=== PATIENT | male | born 1985 | race Caucasian/White ===

== ENCOUNTER 2018-06-08 20:38 | Observation (INO) | payer BC ==
[2018-06-08] MEDS ORDERED: NITROGLYCERIN OINT 1 INCH/GM PACKET TOPICAL STA (21:32)
[2018-06-08] MEDS ORDERED: ASPIRIN 81 MG PO STA (21:32)
[2018-06-08 21:45] LABS: Basophils % (A) 0 %; Eosinophils % (A) 0 %; HCT 49.9 % (39.0-53.0); HGB 16.7 gm/dL (13.0-17.5); Lymphocytes # (A) 1.3 k/uL (1.0-4.8); Lymphocytes % (A) 21 %; MCH 29.6 pg (25.0-35.0); MCHC 33.5 g/dL (31.0-37.0); MCV 88.3 fL (80.0-100.0); Mean Platelet Volume 8.2; Monocytes # (A) 0.5 k/uL (0-1.0); Monocytes % (A) 7 %; Neutrophils # (A) 4.5 k/uL (1.3-7.7); Neutrophils % (A) 70 %; Platelet Count 243 k/uL (150-450); RBC 5.65 m/uL (4.30-5.90); RDW 12.9 % (11.5-15.5); WBC 6.4 k/uL (3.8-10.6)
--- NOTE | 2018-06-08 21:58 | XR ---
EXAMINATION: XR chest 2V DATE AND TIME: 06/08/2018 9:44 PM CLINICAL INDICATION: Chest Pain TECHNIQUE: PA and lateral COMPARISON: None. FINDINGS: The lungs are clear. The pleural spaces are negative. The cardiac silhouette is not enlarged. The remainder of the mediastinal silhouette is unremarkable. The skeletal structures and soft tissues are negative for acute findings. IMPRESSION: NO ACUTE PROCESS.
[2018-06-08 22:00] LABS: ALT 36 U/L (21-72); AST 24 U/L (17-59); Albumin 4.9 g/dL (3.5-5.0); Alkaline Phosphatase 59 U/L (38-126); Anion Gap 12 mmol/L; Blood Urea Nitrogen 19 mg/dL (9-20); Calcium 10.4 mg/dL (8.4-10.2); Carbon Dioxide 26 mmol/L (22-30); Chloride 104 mmol/L (98-107); Glucose 101 mg/dL (74-99); Potassium 3.7 mmol/L (3.5-5.1); Sodium 142 mmol/L (137-145); Total Bilirubin 0.7 mg/dL (0.2-1.3); Total Protein 7.9 g/dL (6.3-8.2)
[2018-06-08 22:04] LABS: INR 1.1 (<1.2); Partial Thromboplastin Time 25.6 sec (22.0-30.0); Prothrombin Time 10.9 sec (9.0-12.0)
[2018-06-08 22:06] LABS: Creatine Kinase 155 U/L (55-170)
[2018-06-08 22:17] LABS: Creatine Kinase MB 0.9 ng/mL (0.0-2.4); Troponin I <0.012 ng/mL (0.000-0.034)
--- NOTE | 2018-06-08 23:25 | ED ---
Chest Pain HPI - General Chief Complaint: Arrhythmia/Palpitations Stated Complaint: racing heart Time Seen by Provider: 06/08/18 21:28 Source: patient Mode of arrival: ambulatory Limitations: no limitations - History of Present Illness Initial Comments: This 33-year-old white male presents with a complaint of some midsternal chest pain which is described as a pressure. It has been associated with some palpitations as well. This occurred shortly prior to arrival. He denies any radiation of pain or shortness of breath. He denies any previous similar incidents. He's never had any known cardiac abnormalities. There is no abdominal pain. He's never had any previous cardiac testing. No other complaints or modifying factors. - Related Data Home Medications Medication Instructions Recorded Confirmed Atorvastatin [Lipitor] 20 mg PO DAILY 06/08/18 06/08/18 Allergies Allergy/AdvReac Type Severity Reaction Status Date / Time No Known Allergies Allergy Verified 06/08/18 21:17 Review of Systems ROS Statement: Those systems with pertinent positive or pertinent negative responses have been documented in the HPI. ROS Other: All systems not noted in ROS Statement are negative. Past Medical History Past Medical History: Hyperlipidemia History of Any Multi-Drug Resistant Organisms: None Reported Past Surgical History: No Surgical Hx Reported Past Psychological History: No Psychological Hx Reported Smoking Status: Never smoker Past Alcohol Use History: None Reported Past Drug Use History: None Reported General Exam - General Exam Comments Initial Comments: GENERAL: The patient is well nourished and well hydrated. VITAL SIGNS: Heart rate, blood pressure, respiratory rate reviewed as recorded in nurse's notes. EYES: Pupils are round and reactive. Extraocular movements are intact. No conjunctival / lid redness or swelling. ENT: No external evidence of injury, swelling, or ecchymosis. Airway is patent. Throat is clear. NECK: Nontender. No swelling or evidence of injury. No subcutaneous emphysema. Trachea is midline. No thyroid mass. HEART: Regular rate and rhythm. Good peripheral pulses. LUNGS/CHEST: Breath sounds clear and equal bilaterally. No rales, rhonchi, or wheezes. No ecchymosis, subcutaneous emphysema, or tenderness. ABDOMEN: Abdomen soft without tenderness. No palpable masses or organomegaly. No peritoneal signs. No abdominal wall swelling or ecchymosis. EXTREMITIES: No extremity tenderness. Normal muscle tone and function. No thoracolumbar tenderness. NEUROLOGIC: Sensation is grossly intact. Cranial nerve exam reveals face is symmetrical, tongue is midline, speech is clear. SKIN: No abrasions or ecchymosis is noted. No induration or masses noted. PSYCHIATRIC: Alert and oriented. Appropriate behavior and judgment. Limitations: no limitations Course Vital Signs 06/08/18 20:49 Temperature 98.1 F Pulse Rate 77 Respiratory 18 Rate Blood Pressure 140/81 O2 Sat by Pulse 100 Oximetry Chest Pain MDM - MDM The patient was seen and examined. All diagnostics were reviewed. The EKG shows a normal sinus rhythm at a rate of [address]-T wave changes noted. The NM interval is 164, QRS duration is 100, and the QTC intervals 419. He receives some aspirin as well as some Nitropaste. The laboratory does not show any acute abnormalities. The chest x-ray is negative. Is felt as though possibly acute coronary syndrome is plausible and it is beneficial to admit him to the hospital for short stay admission. He is agreeable. Case will be discussed with internal medicine shortly and he will be admitted for further monitoring and workup. Disposition Clinical Impression: Chest pain, Unstable angina, Palpitations Disposition: ADMITTED IP TO THIS HOSP Condition: Fair Is patient prescribed a controlled substance at d/c from ED?: No Time of Disposition: 23:25
[2018-06-08] MEDS ORDERED: METOPROLOL TARTRATE 25 MG TAB PO SCH (23:45)
[2018-06-08] MEDS ORDERED: ACETAMINOPHEN TAB 325 MG TAB PO PRN (23:45)
[2018-06-08] MEDS ORDERED: NITROGLYCERIN SL TABS 0.4 MG TAB SUBLINGUAL PRN (23:45)
[2018-06-09 00:05] LABS: Cholesterol 199 mg/dL (<200); HDL Cholesterol 57 mg/dL (40-60); LDL Cholesterol,Calculated 118 mg/dL (0-99); Triglycerides 119 mg/dL (<150)
[2018-06-09] MEDS: NITROGLYCERIN OINT 1 INCH/GM PACKET TOPICAL SCH ×2 (00:24→06:03)
[2018-06-09 00:39] VITALS: BMI 31.4
[2018-06-09 03:32] LABS: Creatine Kinase 128 U/L (55-170)
[2018-06-09 03:46] LABS: Creatine Kinase MB 0.6 ng/mL (0.0-2.4); Troponin I <0.012 ng/mL (0.000-0.034)
[2018-06-09 07:20] VITALS: TEMP 98.4
[2018-06-09] MEDS ORDERED: ATORVASTATIN 20 MG TAB PO SCH (09:00)
[2018-06-09] MEDS ORDERED: ENOXAPARIN 40 MG/0.4 ML SYRINGE SQ SCH (09:00)
[2018-06-09] MEDS ORDERED: ASPIRIN 325 MG TAB PO SCH (09:00)
--- NOTE | 2018-06-09 09:51 | P.CRDCN ---
<Corey Ny - Last Filed: 06/09/18 09:49> History of Present Illness History of present illness: Patient came in complaining of a pounding sensation in the chest at rest but after heavy exertion while at work This is the first episode of pounding in the chest. He was not dehydrated he was drinking adequately later on he started experience chest discomfort Normal cardiac enzymes Normal twelve-lead ECG History of dyslipidemia recently started on atorvastatin Nonsmoker no alcohol consumption no diabetes nor hypertension Suggest Exercise stress echo to maximal capacity 2-D echo has been ordered In the future event monitoring may be considered Patient was instructed to go to the emergency room or urgent care as quickly as possible if he had the palpitations and pounding again Past Medical History Past Medical History: Hyperlipidemia History of Any Multi-Drug Resistant Organisms: None Reported Past Surgical History: No Surgical Hx Reported Past Psychological History: No Psychological Hx Reported Smoking Status: Never smoker Past Alcohol Use History: None Reported Past Drug Use History: None Reported Medications and Allergies Home Medications Medication Instructions Recorded Confirmed Type Atorvastatin [Lipitor] 20 mg PO DAILY 06/08/18 06/08/18 History Allergies Allergy/AdvReac Type Severity Reaction Status Date / Time No Known Allergies Allergy Verified 06/08/18 21:17 Physical Exam Vitals: Vital Signs Temp Pulse Pulse Resp BP BP Pulse Ox 06/09/18 07:19 98.4 F 66 101/61 98 06/09/18 04:42 97.9 F 53 L 15 102/67 96 06/09/18 04:00 61 18 06/09/18 00:59 98.2 F 61 18 112/57 98 06/09/18 00:30 61 18 06/09/18 00:20 58 L 0 L 111/44 95 06/09/18 00:10 69 18 111/44 96 06/09/18 00:00 59 L 8 L 124/60 96 06/08/18 23:53 60 16 120/70 100 06/08/18 23:50 60 0 L 124/60 96 06/08/18 23:40 62 0 L 124/60 97 06/08/18 23:30 61 4 L 116/59 96 06/08/18 23:20 91 15 116/59 94 L 06/08/18 23:10 59 L 0 L 116/59 97 06/08/18 23:00 61 7 L 116/77 96 06/08/18 22:50 57 L 7 L 116/77 96 06/08/18 22:40 61 6 L 116/77 99 06/08/18 22:30 60 7 L 126/65 97 06/08/18 22:20 66 8 L 126/65 97 06/08/18 22:10 62 18 126/65 97 06/08/18 22:00 68 28 H 132/76 98 06/08/18 21:50 64 5 L 132/76 97 06/08/18 21:40 132/76 06/08/18 21:30 71 15 125/59 98 06/08/18 21:20 70 14 125/59 96 06/08/18 21:10 74 15 125/59 99 06/08/18 21:00 78 18 06/08/18 20:59 66 17 06/08/18 20:49 98.1 F 77 18 140/81 100 Intake and Output 06/08/18 06/09/18 06/09/18 22:59 06:59 14:59 Intake Total 10 Balance 10 Intake: IV 10 0.9 10 Other: Voiding Method Toilet # Voids 1 Weight 102.058 kg 102.058 kg Results 06/08/18 21:05 06/08/18 21:05 Cardiac Enzymes 06/08/18 06/08/18 06/09/18 Range/Units 21:05 21:05 03:00 AST 24 (17-59) U/L CK-MB (CK-2) 0.9 0.6 (0.0-2.4) ng/mL Troponin I <0.012 <0.012 (0.000-0.034) ng/mL Coagulation 06/08/18 Range/Units 21:05 PT 10.9 (9.0-12.0) sec APTT 25.6 (22.0-30.0) sec Lipids 06/08/18 Range/Units 21:05 Triglycerides 119 (<150) mg/dL Cholesterol 199 (<200) mg/dL HDL Cholesterol 57 (40-60) mg/dL CBC 06/08/18 Range/Units 21:05 WBC 6.4 (3.8-10.6) k/uL RBC 5.65 (4.30-5.90) m/uL Hgb 16.7 (13.0-17.5) gm/dL Hct 49.9 (39.0-53.0) % Plt Count 243 (150-450) k/uL Comprehensive Metabolic Panel 06/08/18 Range/Units 21:05 Sodium 142 (137-145) mmol/L Potassium 3.7 (3.5-5.1) mmol/L Chloride 104 (98-107) mmol/L Carbon Dioxide 26 (22-30) mmol/L BUN 19 (9-20) mg/dL Creatinine 1.06 (0.66-1.25) mg/dL Glucose 101 H (74-99) mg/dL Calcium 10.4 H (8.4-10.2) mg/dL AST 24 (17-59) U/L ALT 36 (21-72) U/L Alkaline Phosphatase 59 (38-126) U/L Total Protein 7.9 (6.3-8.2) g/dL Albumin 4.9 (3.5-5.0) g/dL Current Medications Generic Name Dose Route Start Last Admin Trade Name Freq PRN Reason Stop Dose Admin Acetaminophen 650 mg 06/08/18 23:45 Tylenol Tab PO Q4HR PRN Pain Atorvastatin Calcium 20 mg 06/09/18 09:00 Lipitor PO DAILY [facility] Enoxaparin Sodium 40 mg 06/09/18 09:00 Lovenox SQ DAILY [facility] Nitroglycerin 0.4 mg 06/08/18 23:45 Nitrostat SUBLINGUAL Q5M PRN Chest Pain Intake and Output 06/08/18 06/09/18 06/09/18 22:59 06:59 14:59 Intake Total 10 Balance 10 Intake: IV 10 0.9 10 Other: Voiding Method Toilet # Voids 1 Weight 102.058 kg 102.058 kg 06/08/18 21:05 06/08/18 21:05 <Dia Cook - Last Filed: 06/09/18 10:26> History of Present Illness History of present illness: Mr. Randle is a pleasant 33-year-old male past medical history significant for dyslipidemia. He denies coronary artery disease, hypertension or diabetes mellitus. We have been asked to see him in consultation for chest pain. He states yesterday after he finished working he was sitting down resting and he started feeling his heart racing. The heart racing was persistent for his ride home from [place] to [place]. When he presented to ED he was still feeling this pounding in his chest. He states it felt regular and fast. He also felt a discomfort in his chest associated with the pounding. He denies dizziness , nausea, vomiting, diaphoresis or shortness of breath. Ultimately the palpitations subsided on their own with no specific alleviating factors. He has not had an further symptoms since admission. EKG on admission reveals sinus mechanism with no acute ST or T wave abnormalities noted. Telemetry tracings have been unremarkable. Chest x-ray negative for an acute cardiopulmonary process. Laboratory data reviewed, hemoglobin 16.7, platelets 243, sodium 142, potassium 3.7, magnesium 2.0, creatinine 1.06, cardiac enzymes negative 2, LDL 18 HDL 57. Current cardiac medications include atorvastatin 20 mg daily. At the time of my exam: CONSTITUTIONAL: Denies fever. Denies chills. EYES: Denies blurred vision. Denies vision changes. Denies eye pain. EARS, NOSE, MOUTH & THROAT: Denies headache. Denies sore throat. Denies ear pain. CARDIOVASCULAR: Denies chest pain. Denies shortness of breath. Denies orthopnea. Denies PND. Denies palpitations. RESPIRATORY: Denies cough. GASTROINTESTINAL: Denies abdominal pain. Denies diarrhea. Denies constipation. Denies nausea. Denies vomiting. MUSCULOSKELETAL: Denies myalgias. INTEGUMENTARY: Denies pruitis. Denies rash. NEUROLOGIC: Denies numbness. Denies tingling. Denies weakness. PSYCHIATRIC: Denies anxiety. Denies depression. ENDOCRINE: Denies fatigue. Denies weight change. Denies polydipsia. Denies polyurina. GENITOURINARY: Denies burning, hematuria or urgency with micturation. HEMATOLOGIC: Denies history of anemia. Denies bleeding. Blood pressure 101/61 heart rate 66 afebrile maintaining oxygen saturation on room GENERAL: This is a 33-year-old male in no apparent distress at the time of my examination. HEENT: Head is atraumatic, normocephalic. Pupils are equal, round. Sclerae anicteric. Conjunctivae are clear. Mucous membranes of the mouth are moist. Neck is supple. There is no jugular venous distention. No carotid bruit is heard. LUNGS: Clear to auscultation no wheezes, rales or rhonchi. No chest wall tenderness is noted on palpation or with deep breathing. HEART: Regular rate and rhythm without murmurs, rubs or gallops. S1 and S2 heard. ABDOMEN: Soft, nontender. Bowel sounds are heard. No organomegaly noted. EXTREMITIES: No evidence of peripheral edema and no calf tenderness noted. VASCULAR: Radial and dorsalis pedis pulses palpated, no evidence of clubbing. NEUROLOGIC: Patient is awake, alert and oriented x3. ASSESSMENT Palpitations Dyslipidemia, recently started on atorvastatin for PCP PLAN 2-D echocardiogram and Doppler study has been obtained and will be reviewed. Perform exercise stress echocardiogram to maximum capacity. Follow up with Dr. Ny in the office for outpatient event monitoring. Thank you kindly for this consultation. Nurse Practitioner note has been reviewed, I agree with a documented findings and plan of care. Patient was seen and examined. Physical Exam Vitals: Vital Signs Temp Pulse Pulse Resp BP BP Pulse Ox 06/09/18 07:19 98.4 F 66 101/61 98 06/09/18 04:42 97.9 F 53 L 15 102/67 96 06/09/18 04:00 61 18 06/09/18 00:59 98.2 F 61 18 112/57 98 06/09/18 00:30 61 18 06/09/18 00:20 58 L 0 L 111/44 95 06/09/18 00:10 69 18 111/44 96 06/09/18 00:00 59 L 8 L 124/60 96 06/08/18 23:53 60 16 120/70 100 06/08/18 23:50 60 0 L 124/60 96 06/08/18 23:40 62 0 L 124/60 97 06/08/18 23:30 61 4 L 116/59 96 06/08/18 23:20 91 15 116/59 94 L 06/08/18 23:10 59 L 0 L 116/59 97 06/08/18 23:00 61 7 L 116/77 96 06/08/18 22:50 57 L 7 L 116/77 96 06/08/18 22:40 61 6 L 116/77 99 06/08/18 22:30 60 7 L 126/65 97 06/08/18 22:20 66 8 L 126/65 97 06/08/18 22:10 62 18 126/65 97 06/08/18 22:00 68 28 H 132/76 98 06/08/18 21:50 64 5 L 132/76 97 06/08/18 21:40 132/76 06/08/18 21:30 71 15 125/59 98 06/08/18 21:20 70 14 125/59 96 06/08/18 21:10 74 15 125/59 99 06/08/18 21:00 78 18 06/08/18 20:59 66 17 06/08/18 20:49 98.1 F 77 18 140/81 100 Intake and Output 06/08/18 06/09/18 06/09/18 22:59 06:59 14:59 Intake Total 10 Balance 10 Intake: IV 10 0.9 10 Other: Voiding Method Toilet # Voids 1 Weight 102.058 kg 102.058 kg Results 06/08/18 21:05 06/08/18 21:05 Cardiac Enzymes 06/08/18 06/08/18 06/09/18 Range/Units 21:05 21:05 03:00 AST 24 (17-59) U/L CK-MB (CK-2) 0.9 0.6 (0.0-2.4) ng/mL Troponin I <0.012 <0.012 (0.000-0.034) ng/mL Coagulation 06/08/18 Range/Units 21:05 PT 10.9 (9.0-12.0) sec APTT 25.6 (22.0-30.0) sec Lipids 06/08/18 Range/Units 21:05 Triglycerides 119 (<150) mg/dL Cholesterol 199 (<200) mg/dL HDL Cholesterol 57 (40-60) mg/dL CBC 06/08/18 Range/Units 21:05 WBC 6.4 (3.8-10.6) k/uL RBC 5.65 (4.30-5.90) m/uL Hgb 16.7 (13.0-17.5) gm/dL Hct 49.9 (39.0-53.0) % Plt Count 243 (150-450) k/uL Comprehensive Metabolic Panel 06/08/18 Range/Units 21:05 Sodium 142 (137-145) mmol/L Potassium 3.7 (3.5-5.1) mmol/L Chloride 104 (98-107) mmol/L Carbon Dioxide 26 (22-30) mmol/L BUN 19 (9-20) mg/dL Creatinine 1.06 (0.66-1.25) mg/dL Glucose 101 H (74-99) mg/dL Calcium 10.4 H (8.4-10.2) mg/dL AST 24 (17-59) U/L ALT 36 (21-72) U/L Alkaline Phosphatase 59 (38-126) U/L Total Protein 7.9 (6.3-8.2) g/dL Albumin 4.9 (3.5-5.0) g/dL Current Medications Generic Name Dose Route Start Last Admin Trade Name Freq PRN Reason Stop Dose Admin Acetaminophen 650 mg 06/08/18 23:45 Tylenol Tab PO Q4HR PRN Pain Atorvastatin Calcium 20 mg 06/09/18 09:00 Lipitor PO DAILY [facility] Enoxaparin Sodium 40 mg 06/09/18 09:00 Lovenox SQ DAILY [facility] Nitroglycerin 0.4 mg 06/08/18 23:45 Nitrostat SUBLINGUAL Q5M PRN Chest Pain Intake and Output 06/08/18 06/09/18 06/09/18 22:59 06:59 14:59 Intake Total 10 Balance 10 Intake: IV 10 0.9 10 Other: Voiding Method Toilet # Voids 1 Weight 102.058 kg 102.058 kg 06/08/18 21:05 06/08/18 21:05
[2018-06-09 11:59] VITALS: BP 113/50; PULSE 72; RESP 16
--- NOTE | 2018-06-09 12:51 | ECHOF ---
Referral Reason: MEASUREMENTS -------- HEIGHT: 162.6 cm WEIGHT: 102.1 kg BP: 102/67 RVIDd: 3.2 cm (< 3.3) IVSd: 1.1 cm (0.6 - 1.1) LVIDd: 4.1 cm (3.9 - 5.3) LVPWd: 1.5 cm (0.6 - 1.1) IVSs: 1.3 cm LVIDs: 2.6 cm LVPWs: 1.7 cm LA Diam: 2.8 cm (2.7 - 3.8) Ao Diam: 3.2 cm (2.0 - 3.7) AV Cusp: 2.1 cm (1.5 - 2.6) LA Diam: 3.2 cm (2.7 - 3.8) MV EXCURSION: 19.089 mm (> 18.000) MV EF SLOPE: 99 mm/s (70 - 150) EPSS: 0.6 cm MV E Joni: 0.64 m/s MV DecT: 210 ms MV A Joni: 0.46 m/s MV E/A Ratio: 1.38 RAP: 5.00 mmHg RVSP: 12.23 mmHg FINDINGS -------- Sinus rhythm. This was a technically good study. LV size, wall thickness and systolic function are normal, with an EF greater than 55%. The left ashley tricular size is normal. The left atrial size is normal. The right atrial size is normal. The aortic valve is trileaflet, and appears structurally normal. No aortic stenosis or regurgitation. Mild mitral regurgitation is present. Mild tricuspid regurgitation present. There is no evidence of pulmonary hypertension. The right v entricular systolic pressure, as measured by Doppler, is 12.23mmHg. There is no pulmonic regurgitation present. The aortic root size is normal. There is no pericardial effusion. CONCLUSIONS -------- 1. LV size, wall thickness and systolic function are normal, with an EF greater than 55%. 2. The left ventricular size is normal. 3. The left atrial size is normal. 4. The right atrial size is normal. 5. The aortic valve is trileaflet, and appears structurally normal. No aortic stenosis or regurgitati on. 6. Mild mitral regurgitation is present. 7. Mild tricuspid regurgitation present. 8. There is no evidence of pulmonary hypertension. 9. The right ventricular systolic pressure, as measured by Doppler, is 12.23mmHg. 10. There is no pulmonic regurgitation present. 11. The aortic root size is normal. 12. There is no pericardial effusion. [employer]LE [employer]ATH[employer] CUTTING MACHINE OPERATOR: Davida Batista RDCS
--- NOTE | 2018-06-09 15:35 | HP ---
HISTORY AND PHYSICAL DATE OF ADMISSION: 06/08/2018 DATE OF SERVICE: 06/09/2018 PRESENTING COMPLAINT: Heart racing. HISTORY OF PRESENTING COMPLAINT: This is a 33-year-old patient of Dr. Padgett in rather good health. 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 Around 7:00 pm any p.m. yesterday was sitting down and his heart started racing, lasted for about an hours. There was no dizziness. No lightheadedness. No shortness of breath. No perspiration. Did not radiate to the neck or arm. The patient did feel a little bit pressure afterwards. Decided to come in. Does not smoke or drink alcohol. Denies use of any recreational drugs. Drinks about 120 oz coffee in the morning. It is occasional Gatorade rather pretty active. No family history of cardiac disease patient EKG was normal sinus rhythm, otherwise asymptomatic and healthy. REVIEW OF SYSTEMS: CONSTITUTIONAL: None. HEENT: None. CARDIOVASCULAR: None. GASTROINTESTINAL none denied. MUSCULOSKELETAL: None dermatologic hematologic lymphatic none. PSYCHIATRY: None. NEUROLOGICAL: None. PAST MEDICAL HISTORY: Hyperlipidemia. PAST SURGICAL HISTORY: None. SOCIAL HISTORY: No smoking, no alcohol. 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 . FAMILY HISTORY: Not completely noncontributory to presentation. HOME MEDICATIONS: Lipitor 20 mg a day. ALLERGIES: None. PHYSICAL EXAMINATION: Vital signs on presentation temperature 98.1, pulse 97, respiratory 18, blood pressure 140/81, pulse 100% on room air. GENERAL APPEARANCE: Average build, BMI 31.8, sitting up, comfortable. EYES: Pupils equal, conjunctivae normal. HEENT: External appearance of nose and ears normal. Oral cavity normal. NECK: JVD not raised, mass not palpable. RESPIRATORY: Effort normal. Lungs are clear. CARDIOVASCULAR: First and second sounds normal. No edema. ABDOMEN: Soft, nontender. Liver and spleen not palpable. LYMPHATIC: No lymph node palpable in neck or axillae. PSYCHIATRY: Alert and oriented x3. Mood and affect normal. NEUROLOGICAL: Pupils equal. Cranial nerves grossly intact. Power and sensation grossly intact. INVESTIGATIONS: White count 6.4, hemoglobin 16.7, potassium 3.7, troponin times 2 negative. LDL 118. EKG tracing personally reviewed by me shows normal sinus rhythm . Chest x-ray film, personally reviewed by me shows clear lung bell. A 2D echocardiogram done earlier this morning shows preserved LV function. ASSESSMENT: 1. Evidence of heart racing for one hour, probably evidence of possibly supraventricular tachycardia/arrhythmia, self-limiting. No other associated symptoms. Patient does not have any cardiac risk factors. Does not have any excessive caffeine intake. Seen by Cardiology who ordered the stress test stress test. 2. Obesity, body mass index of 31.4. 3. Hyperlipidemia. PLAN: Care was discussed with the patient by the bedside the patient. The patient did have a stress test this morning. Awaiting the results. Cardiology has also ordered a D-dimer and TSH. Will await the results of the same. Patient's symptoms are not entirely compatible with PE. MMODL / IJN: [id number] /
--- NOTE | 2018-06-10 07:09 | DS ---
DISCHARGE SUMMARY DATE OF ADMISSION: 06/08/2018 DATE OF DISCHARGE: 06/09/2018 FINAL DIAGNOSES: 1. Arrhythmia, likely supraventricular tachycardia, self-limiting. 2. Obesity body mass index 31.4. 3. Hyperlipidemia. HOSPITAL COURSE: This patient is rather healthy, presented with evidence of racing heart, lasted about an hour. A 2-D echocardiogram was unremarkable. Stress test was reported to be negative per Cardiology. D-dimer was negative. TSH was normal. On examination, afebrile, blood pressure 113/50. Lungs are clear. CARDIOVASCULAR: First and second sounds normal. CONSULTATION: Dr. Corey yN from Cardiology. Care was discussed with the patient and . DISCHARGE MEDICATION: Lipitor 20 mg a day. Follow up with Dr. Ny in 6 weeks. Follow up with Dr. Padgett in 2 weeks. MMODL / IJN: [id number] /
--- NOTE | 2018-06-10 20:27 | ECHOS ---
STRESS ECHOCARDIOGRAM BASELINE HEART RATE: 73 BASELINE BLOOD PRESSURE: 104/44 MAXIMUM HEART RATE: 160 MAXIMUM BLOOD PRESSURE: 188/56 85% MPHR: 152 100% MPHR: 185 METS: 13.5 MAXIMUM STAGE REACHED: 5 TOTAL EXERCISE TIME: 13:00 CLINICAL INFORMATION: This is a 33-year-old male patient who presented with chest discomfort. He underwent an exercise stress echo. Baseline heart rate 73 beats per minute. Baseline blood pressure 104/44 mmHg. Baseline 12-lead ECG shows normal sinus rhythm with occasional PVCs, nonspecific ST-T abnormalities. Patient exercised on a Danny protocol for 13 minutes achieving a peak heart rate of 160 beats per minute. There was no ECG evidence for ischemia. Occasional PVCs are noted. No sustained or nonsustained arrhythmias noted. There was no ECG evidence for ischemia. The baseline 2D echo images showed normal LV size and systolic function without segmental wall motion abnormalities. At peak exercise, there was excellent augmentation of overall LV contractility without developing any wall motion abnormalities. At recovery, regional global LV systolic function remained normal. IMPRESSION: No ECG or echocardiographic evidence for ischemia. MMODL / IJN: [id number] /
== END 2018-06-09 16:45 | disposition home or self-care (01) ==
LOC: EC 20:38 → 1SOBS 23:25
PROVIDERS: ADMIT Hospitalist; ATTEND Hospitalist
DX: I49.9 Cardiac arrhythmia, unspecified (principal); Z68.31 Body mass index [BMI] 31.0-31.9, adult; E66.9 Obesity, unspecified; E78.5 Hyperlipidemia, unspecified; Z79.899 Other long term (current) drug therapy; R07.89 Other chest pain; R00.2 Palpitations
CPT/HCPCS: 99285; 36415; 93005; 93306; 93351; 85379; 80061; 80053; 84443; 82550 ×2; 82553 ×2; 83735; 84484 ×2; 85025; 85610; 85730; 71046; G0378 ×2